=== PATIENT | female | born 1985 | race Caucasian/White ===

== ENCOUNTER 2021-07-24 02:15 | Emergency (ER) | payer OTHER ==
[~2021-07-24] VITALS: Ht 162.6 cm; Wt 105.7 kg
[2021-07-24 02:20] VITALS: BP 153/83
--- NOTE | 2021-07-24 02:24 | NUR ---
PATIENT AMBULATORY TO BED 7.
--- NOTE | 2021-07-24 02:30 | NUR ---
PATIENT BIB SELF, STATES SHE HAS HAD EAR ACHE FOR 3 DAYS, STATES SHE HAS HAD FEVER AND CHILLS. HAS TAKEN IBUPROFEN AT HOME. DENIES ANY DISCHARGE FROM EAR, DENIES VOMITING/ NAUSEA, SOB, SORE THROAT, OR RESPIRATORY SYMPTOMS. WILL CONTINUE TO MONITOR. PMH: NONE
[2021-07-24] MEDS ORDERED: IBUP-2213 PO (02:35)
[2021-07-24] MEDS ORDERED: COROTSOL LEFT EAR (02:35)
[2021-07-24 02:40] VITALS: BP 153/83
--- NOTE | 2021-07-24 02:40 | NUR ---
Patient discharged with v/s stable. Written and verbal after care instructions given and explained. Patient alert, oriented and verbalized understanding of instructions. Ambulatory with steady gait. All questions addressed prior to discharge. ID band removed. Patient advised to follow up with PMD. Rx of Hc/NEOMYCIN SULF/POLYMYXIN AND IBUPROFEN given. Patient educated on indication of medication including possible reaction and side effects. Opportunity to ask questions provided and answered.
== END 2021-07-24 02:50 | disposition home or self-care (01) ==
LOC: MED 02:15
DX: H60.92 Unspecified otitis externa, left ear (principal); R50.9 Fever, unspecified
CPT/HCPCS: 99283

== ENCOUNTER 2022-08-08 00:05 | Emergency (ER) | payer OTHER ==
[~2022-08-08 00:05] MED LIST: COROTSOL LEFT EAR; IBUP-2213 PO
--- NOTE | 2022-08-08 00:33 | NUR ---
CALLED WITH NO ANSWER
--- NOTE | 2022-08-08 01:00 | NUR ---
PT CALLED IN LOBBY AND OUTSIDE NO ANSWER. LWBT
== END 2022-08-08 00:33 | disposition left against medical advice (07) ==
LOC: MED 00:05
DX: R10.9 Unspecified abdominal pain (principal); Z53.21 Procedure and treatment not carried out due to patient leaving prior to being seen by health care provider